=== PATIENT | male | born 1965 | race Caucasian/White ===

== ENCOUNTER 2024-10-18 05:15 | Observation (INO) | payer OTHER, SELFPAY ==
[2024-10-17 23:09] VITALS: BP 158/84; BMI 27.8
[2024-10-17 23:12] VITALS: BP 158/84
[2024-10-18] VITALS (10 sets, daily range): BP systolic 113–141; BP diastolic 57–85; BMI 28.1
[2024-10-18] MEDS: DECADRON 10 MG IV (00:06)
[2024-10-18] MEDS: TORADOL 15 MG IV ×3 (00:07→17:24)
[2024-10-18] MEDS: VALIUM INJECTION 5 MG IV (00:08)
[2024-10-18] MEDS: DILAUDID 0.5 MG IV ×4 (01:55→20:41)
[2024-10-18] MEDS: LIDOCAINE 4% PATCH 1 PATCH TOPICAL (02:36)
[2024-10-18] MEDS: TYLENOL 1000 MG PO ×4 (02:36→23:00)
--- NOTE | 2024-10-18 02:48 | ED.GENMED ---
History of Present Illness
<Ron Garcia PA-C - Last Filed: 10/18/24 03:23>
General
Chief Complaint: Back Pain
Source: patient
Exam Limitations: none
Time Seen by Provider: 10/17/24 23:50
History of Present Illness
History of Present Illness:
59-year-old male presents via EMS with severe lower back pain worsening over the past 2 to 3 days. He was unable to get off of his recliner today. EMS had to come get him. He denies bowel or bladder dysfunction. He denies leg pain. No perianal
anesthesia. He has a history remotely of requiring L4-L5 laminectomy. No fevers. No abdominal pain chest pain or shortness of breath. No paresthesias to the leg. Tried [id number] medications at home without relief. He tried muscle
relaxer and Vicodin at home without relief.
Past History
<Ron Garcia PA-C - Last Filed: 10/18/24 03:23>
Past History
ED Past Medical History: Asthma
ED Past Surgical History: None
Social History
Tobacco: Non-smoker
Alcohol: None
Personal:
Living: with family
Employment: Employed
Family History
Family History: Other (Mother with history of aortic stenosis.); Negative CAD
Phy Exam
<Ron Garcia PA-C - Last Filed: 10/18/24 03:23>
Physical Exam
Physical Exam:
General: Comfortable appearing male no acute respiratory distress
HEENT: Normocephalic atraumatic
Heart: Regular rate and rhythm
Lungs: Clear no wheeze
Abdomen: Soft nontender nondistended
Vascular: 2+ dorsalis pedis pulse bilateral feet
Neurologic: Good sensation bilateral lower extremities bilateral patellar reflexes 2+ bilateral Achilles reflexes 2+. Good strength to the lower extremities
Skin is warm no rash
Musculoskeletal exam: No reproducible tenderness to the lumbar spine. Good passive range of motion to the leg
Course
<Ron Garcia PA-C - Last Filed: 10/18/24 03:23>
Orders/Labs/Results
Orders:
Orders
10/18/24 00:01
Dexamethasone Sod Phosphate [Decadron] 10 mg IV NOW STA
Ketorolac [Toradol] 15 mg IV NOW STA
diazePAM [Valium Injection] 5 mg IV NOW STA
CR Lumbar Spine 2 Or 3 Views Urgent
Comment:
Reason For Exam: back pain
10/18/24 01:45
HYDROmorphone [Dilaudid] 0.5 mg IV NOW STA
10/18/24 02:29
Basic Metabolic Panel Urgent
Complete Blood Count/With Diff Urgent
Urinalysis Reflex To Culture Urgent
Acetaminophen [Tylenol] 1,000 mg PO NOW STA
Lidocaine [Lidocaine 4% Patch] 1 patch TOPICAL ONCE ONE
Apply Lidocaine patch(s) to:: low back
Vital Signs
Initial and Last Documented VS:
Initial Vital Signs
Temp Pulse Resp BP Pulse Ox
36.7 C 69 20 158/84 98
10/17/24 23:09 10/17/24 23:09 10/17/24 23:09 10/17/24 23:09 10/17/24 23:09
Last Documented Vital Signs
Temp Pulse Resp BP Pulse Ox
36.7 C 60 14 113/79 94
10/17/24 23:09 10/18/24 00:00 10/18/24 00:00 10/18/24 02:00 10/18/24 02:00
<Scotty Brooke MD - Last Filed: 10/18/24 03:28>
Orders/Labs/Results
Orders:
Orders
10/18/24 00:01
Dexamethasone Sod Phosphate [Decadron] 10 mg IV NOW STA
Ketorolac [Toradol] 15 mg IV NOW STA
diazePAM [Valium Injection] 5 mg IV NOW STA
CR Lumbar Spine 2 Or 3 Views Urgent
Comment:
Reason For Exam: back pain
10/18/24 01:45
HYDROmorphone [Dilaudid] 0.5 mg IV NOW STA
10/18/24 02:29
Basic Metabolic Panel Urgent
Complete Blood Count/With Diff Urgent
Urinalysis Reflex To Culture Urgent
Acetaminophen [Tylenol] 1,000 mg PO NOW STA
Lidocaine [Lidocaine 4% Patch] 1 patch TOPICAL ONCE ONE
Apply Lidocaine patch(s) to:: low back
Vital Signs
Initial and Last Documented VS:
Initial Vital Signs
Temp Pulse Resp BP Pulse Ox
36.7 C 69 20 158/84 98
10/17/24 23:09 10/17/24 23:09 10/17/24 23:09 10/17/24 23:09 10/17/24 23:09
Last Documented Vital Signs
Temp Pulse Resp BP Pulse Ox
36.7 C 60 14 113/79 94
10/17/24 23:09 10/18/24 00:00 10/18/24 00:00 10/18/24 02:00 10/18/24 02:00
Procedures
<Scotty Brooke MD - Last Filed: 10/18/24 03:28>
Other
Indication for procedure:: low back pain
Procedure completed by: Scotty Brooke MD
Additional Procedure:
Trigger point injection
Area was cleaned using usual sterile procedure
Injected 5 cc of lidocaine 1%/bupivacaine 0.5%
Band-Aid applied.
Patient tolerated procedure well
<Ron Garcia PA-C - Last Filed: 10/18/24 03:23>
MDM/Problems Addressed
Differential Diagnosis Includes:
Patient with severe low back pain. Most likely musculoskeletal. No signs of cauda equina. No fever to suggest infectious source. Pain is certainly made worse with motion and positional. Do not suspect kidney stone. Patient treated with
multiple medications here including Toradol, Decadron, Valium
And eventually Dilaudid. Patient felt somewhat more comfortable at rest however multiple attempts were made for the patient to even sit up in bed or dangle his feet off the bed and he was able to get his back stretcher. Discussed with emergency
room attending. This point with the inability to walk feeling multiple medications will keep in hospital for intractable back pain
<Ron Garcia PA-C - Last Filed: 10/18/24 03:23>
*Critical Care Note
Total Time (30-74mins, 75-104mins- exclusive of procedures): Not Applicable
<Ron Garcia PA-C - Last Filed: 10/18/24 03:23>
Update Note
Update Note:
Patient given trigger point injection by emergency room attending. Patient notes minimal relief with this as well. Still unable to sit up or dangle his feet off the bed
ED Attending Note
<Ron Garcia PA-C - Last Filed: 10/18/24 03:23>
-
Portions of this chart may have been created with voice recognition software.� Occasional wrong word or��sound alike� substitutions may have occurred due to the inherent limitations of voice recognition software.
<Scotty Brooke MD - Last Filed: 10/18/24 03:28>
ED Attending Note
Patient seen and examined by attending physician: Yes
ED Attending Note:
I have seen and evaluated the patient with a [id number] encounter. I have spoken to the advance practicer provider and involved in the medical history, the physical exam, medical decision making.
Evaluation and management service: agree unless noted differently below.
Results interpretation: agree unless noted differently below.
Focused HPI: 59-year-old male with history as noted presents for evaluation of low back pain. Patient reports symptoms started the day after he lifted some 40 pound bags of salt at the store. He says the next day his back was sore and he has had
progressive pain since. He says that today he could barely move due to low back pain. Pain mostly on the right side but radiates across the low back. No radicular symptoms down the legs. No weakness or numbness in the legs. No saddle
anesthesia. No bowel or bladder incontinence. He denies any other urinary symptoms. Denies any abdominal pain. Denies any other complaints. He has been taking Motrin, stretching, heat packs/hot shower without improvement.
Physical exam: Awake alert appears uncomfortable. Laying still in bed. Hypertensive otherwise normal vitals. There is no midline tenderness of the thoracic or lumbar spine. He has point tenderness right paraspinal region approximately level of
L3. Motor and sensory intact in the legs.
Medical Decision Makin-year-old male presents for evaluation of low back pain right greater than left for the past few days after lifting heavy salt bags. He has no red flags to suggest cauda equina and in my judgment no indication for
emergent MRI. We did check x-ray of the lumbar spine reviewed by me shows no acute fracture. Suspect muscular back pain/myofascial strain with spasm. He was given steroid, Lidoderm, Tylenol, Toradol, Valium, Dilaudid he had some improvement but
still significant pain cannot move around in the bed. I did trial a trigger point injection as he had point tenderness in the right lumbar region but again inadequate pain control. Will admit for symptom control. Discussed with hospitalist.
Discharge Plan
Departure
Prescriptions:
No Action
montelukast 10 MG tablet
10 mg PO HS
albuterol sulfate 1 PUFF HFA aerosol inhaler
1 puff inhalation R Q4HPRN PRN (Reason: asthma)
fluticasone propionate 1 SPRAY spray,suspension
2 spray intranasal DAILY
fluticasone furoate-vilanterol [Breo Ellipta] 1 EACH blister with device
1 puff inhalation DAILY
acetaminophen 325 MG tablet
650 mg PO Q4HPRN PRN (Reason: mild pain) Qty: 1 0RF
ibuprofen 200 MG tablet
400 - 600 mg PO Q6HPRN PRN (Reason: moderate pain) Qty: 1 0RF
Referrals:
Radha Shahid DO [Family Provider] -
Interventions
Interventions:
*Risk Screen - Suicide Last Done: 10/17/24 23:09
*General Assessment Last Done: 10/17/24 23:09
*Neglect/Abuse Screening Last Done: 10/17/24 23:09
*ED- Fall Risk Assessment Last Done: 10/17/24 23:09
*ED COVID-19 Vaccine History Last Done: 10/17/24 23:09
ED-Musculoskeletal Assessment Last Done: 10/17/24 23:22
Discharge Date and Time
Print Language: CROATIAN
[2024-10-18 03:29] LABS: % Basophils 0.5 % (0-2); % Eosinophils 0.8 % (0-6); % Immature Granulocytes 0.3 % (0-0.5); % Lymphocytes 8.5 % (20.5-51.1); % Monocytes 3.6 % (1.7-9.3); % Neutrophils 86.3 % (42.2-75.2); Absolute Basophils 0.1 10^3/uL (0-0.2); Absolute Eosinophils 0.1 10^3/uL (0-0.7); Absolute Lymphocytes 0.8 10^3/uL (1.2-3.4); Absolute Monocytes 0.3 10^3/uL (0.1-0.6); Hematocrit 42.9 % (39.0-52.0); Hemoglobin 14.5 g/dL (13.0-18.0); Mean Corp Hgb Conc. 33.8 g/dL (33.0-37.0); Mean Corpuscular Hgb 28.4 pg (27.0-31.0); Mean Platelet Volume 10.8 fL (7.4-10.4); Nucleated Red Blood Cells % 0 % (-); Platelet Count 228 10^3/uL (130-400); Red Blood Cell Count 5.11 10^6/uL (4.70-6.10); Red Cell Dist. Width 14.1 % (11.5-14.5); White Blood Cell Count 9.3 10^3/uL (4.8-10.8)
[2024-10-18 03:48] LABS: Blood Urea Nitrogen 19 mg/dl (9-20); Carbon Dioxide 24 mmol/L (22-30); Chloride 108 mmol/L (98-107); Estimated Creatinine Clearance > 125 ml/min; Glucose 124 mg/dl (70-99); Potassium 4.6 mmol/L (3.5-5.1); Sodium 138 mmol/L (135-145); eGFR > 60.00
[2024-10-18 04:56] LABS: Urine Albumin Negative (Neg - Trace); Urine Bilirubin Negative (Negative); Urine Character Clear (Clear); Urine Color Yellow; Urine Glucose Negative (Negative); Urine Ketone Negative (Negative); Urine Leukocyte Negative (Negative); Urine Nitrite Negative (Negative); Urine Occult Blood 1+ (Negative); Urine Specific Gravity 1.015 (<1.030); Urine Urobilinogen Negative (Neg - 1+)
--- NOTE | 2024-10-18 05:05 | HPS.HSE ---
Family Physician
-
Family Physician: Radha Shahid DO
Chief Complaint
-
Back Pain
History of Present Illness
Patient is a 59y M with PMH significant for asthma and DDD who presents to ED complaining of back pain. Patient states that he developed low back a few days ago after carrying some heavy objects. He has performed similar activities in the past
without aggravating his back. Patient has been taking OTC meds, muscle relaxants, etc at home without significant improvement in his symptoms. This evening, he was unable to move / get up without severe pain and called EMS.
Patient denies any LE numbness, tingling or weakness. No incontinence of bowel or bladder.
No other concerning symptoms / findings.
Medical History
Past Medical History
Past Medical History: Reports Other
Additional Past Medical History:
Asthma
Lumbar DDD
Past Surgical History: Reports Other
Additional Past Surgical History:
L4-5 Laminectomy
Cholecystectomy
Social History
Tobacco: Non-smoker
Alcohol: None
Drug: None
Family History
Family History: Not pertinent
Allergies / Home Medications
Allergies reflects when Allergies were last updated in [facility].
Home Medications with original date entered in [facility]
Allergy/Medication List:
Allergies
Allergy/AdvReac Type Severity Reaction Status Date / Time
khadijah Allergy Swelling Uncoded 10/17/24 23:08
Home Medications
albuterol sulfate 90 mcg/actuation aerosol inhaler 1 puff inhalation R Q4HPRN PRN asthma 10/04/21
fluticasone furoate 200 mcg-vilanterol 25 mcg/dose inhalation powder (Breo Ellipta) 1 puff inhalation DAILY 10/04/21
fluticasone propionate 50 mcg/actuation nasal spray,suspension 2 spray intranasal DAILY 10/04/21
montelukast 10 mg tablet 10 mg PO HS 10/04/21
acetaminophen 325 mg tablet 650 mg (2 x 325 mg) PO Q4HPRN PRN mild pain #1 tab 10/07/21
ibuprofen 200 mg tablet 400 - 600 mg (2 - 3 x 200 mg) PO Q6HPRN PRN moderate pain #1 tab 10/07/21
Review of Systems
-
History Source: Patient
A 12 point ROS was completed and negative except as noted: Yes
Constitutional: Denies Fever or Chills
Respiratory: Denies Cough or Trouble Breathing
Cardiac: Denies Chest Pain or Palpitations
Abdomen/GI: Denies Abdominal Pain, Nausea, Vomiting or Diarrhea
: Denies Dysuria or Frequency
Musculoskeletal: Reports Other (Back Pain); Denies Joint Pain or Edema
Neurological: Denies Dizzy or Headache
Psych: Denies Depression or Anxiety
Physical Exam
Vital Signs
Vital Signs
Temp Pulse Resp BP Pulse Ox
98.1 F 60 18 126/69 93
10/17/24 23:09 10/18/24 03:00 10/18/24 03:00 10/18/24 04:00 10/18/24 04:00
Physical Exam
General: Other (59y M in mild distress due to pain.)
HEENT: Moist mucous membranes and PERRLA
Respiratory: Clear; No Wheezes, Rales or Rhonchi
Cardiac: S1/S2 and Regular Rhythm; No Murmur
GI: Soft, Non Tender, Non Distended and Normal Bowel Sounds
Musculoskeletal: No Clubbing, No Cyanosis, No Edema and Other (Patient able to perform SLR bilaterally to at least 45 degrees without severe back pain. Strength, sensation, reflexes intact in LE. Pos low back tenderness / spasm.)
Neuro: AO x 3 and Nonfocal/grossly intact
Laboratory Results
-
10/18/24 03:18
10/18/24 03:18
Impression/Plan
-
A/P: Patient is a 59y M with PMH significant for lumbar DDD who presents to ED complaining of back pain x several days.
Intractable Low Back Pain
Lumbar DDD
- Observe overnight for symptom control.
- No warning signs / symptoms to suggest cord compression, cauda equina, nerve impingment.
- Continue pain control, muscle relaxants, heat application, etc.
- PT evaluation.
- Follow for clinical improvement / increased mobility.
Mild Intermittent Asthma
- Stable. Continue usual medications.
DVT Prophylaxis: Lovenox
Code Status: Full
[2024-10-18 05:10] LABS: Urine Red Blood Cell 0-2 /HPF (0-2); Urine Squamous Cell None seen /LPF (Few); Urine White Cell 0-2 /HPF (0-5)
[2024-10-18] MEDS: SYMBICORT 160/4.5 MCG INHALER INH (07:30)
[2024-10-18] MEDS: VALIUM 5 MG PO ×2 (11:16→19:44)
--- NOTE | 2024-10-18 13:42 | CM ---
Initial assessment completed with pt at bedside.
Pt is a 59yr old male admitted on OBS for intractable back pain
Pt signed OBS
At baseline, pt is indep and lives with his in a 2 level home with 2 steps to enter.
Pt drives and has no current/hx of equip/SNF/VN.
PCP; Radha Shahid
Pharm; [facility]
PLAN; dc to home with no anticipated needs.
--- NOTE | 2024-10-18 16:35 | PTCARENOTE ---
Patient unable to stand due to pain. Patient can reposition himself in bed with slow, cautious movements. Kpad placed under low back.
[2024-10-18] MEDS: LOVENOX 40 MG SC (17:21)
[2024-10-18] MEDS: SYMBICORT 160/4.5 MCG INHALER 2 PUFF INH (19:21)
[2024-10-18] MEDS: SINGULAIR 10 MG PO (23:00)
[2024-10-19] MEDS: DILAUDID 0.5 MG IV ×2 (03:03→07:59)
[2024-10-19] MEDS: VALIUM 5 MG PO ×3 (04:25→20:51)
[2024-10-19] MEDS: TORADOL 15 MG IV (05:40)
[2024-10-19 06:00] VITALS: BMI 28.4
[2024-10-19 07:01] VITALS: BP 115/72
[2024-10-19] MEDS: SYMBICORT 160/4.5 MCG INHALER 2 PUFF INH ×2 (07:46→19:47)
[2024-10-19] MEDS: TYLENOL 1000 MG PO ×3 (07:58→22:36)
--- NOTE | 2024-10-19 09:24 | W.PN.HOSP.TC ---
Today's Communication/Plan
-
see note
Assessment / Plan
Assessment / Plan
Intractable Low Back Pain
Lumbar DDD
-Patient continues with significant pain and unable to participate with physical therapy yesterday due to spasms
-Change pain medication regimen with oxycodone 5/10 mg ordered for moderate severe pain with Dilaudid remains for breakthrough use
-Gabapentin 200 mg twice daily added
-Start on Tylenol 1 g every 8 hours scheduled with ketorolac as needed
-Will add steroids if patient does not have any improvement
-Maintain on daily MiraLAX and hold if diarrhea for the day, dulcolax for as needed's if no bowel movement for the day
-Reevaluation with physical therapy today
Mild Intermittent Asthma
- Stable. Continue usual medications.
DVT Prophylaxis: Lovenox
Code Status: Full
Anticipated Discharge: Within 24 hours
Subjective/Interval History
-
Date of Service: October 19, 2024
Continues to have some pain and spasms
Not constipated
No other issues reported
Objective Data
-
Vital Signs:
Vital Signs
Temp Pulse Resp BP Pulse Ox
98.1 F 83 14 115/72 96
10/19/24 07:01 10/19/24 07:51 10/19/24 07:51 10/19/24 07:01 10/19/24 07:51
I&O
10/18/24 10/19/24 10/20/24
05:59 06:59 06:59
Intake Total
Output Total
Balance
Review of Systems
-
Respiratory: Reports No Symptoms
Cardiac: Reports No Symptoms
Abdomen/GI: Reports No Symptoms
Physical Exam
-
General: No Apparent Distress and Comfortable
HEENT: Negative Oxygen
Respiratory: Clear to Auscultation
Cardiac: Regular Rhythm and S1/S2; Negative Murmur or Rub
GI: Soft, Nontender and Nondistended
Musculoskeletal: No Edema
Neuro: Awake, Alert, Oriented, No Motor Deficits and Nonfocal/Grossly Intact
Psych: Calm
[2024-10-19] MEDS: NEURONTIN 200 MG PO ×2 (11:16→20:49)
[2024-10-19] MEDS: MIRALAX 17 GRAMS PO (11:17)
[2024-10-19 12:35] VITALS: BP 149/80; PULSE 63
[2024-10-19 12:37] VITALS: BP 149/86; PULSE 63
[2024-10-19] MEDS: SKELAXIN 800 MG PO (14:49)
[2024-10-19] MEDS: ROXICODONE 5 MG PO (14:50)
[2024-10-19 15:45] VITALS: BP 133/79
[2024-10-19] MEDS: LOVENOX 40 MG SC (16:48)
[2024-10-19] MEDS: ROXICODONE 10 MG PO ×2 (18:10→22:36)
[2024-10-19] MEDS: SINGULAIR 10 MG PO (22:36)
[2024-10-19 23:13] VITALS: BP 97/50
[2024-10-20 05:15] VITALS: BP 135/76
[2024-10-20] MEDS: ROXICODONE 10 MG PO ×3 (05:15→14:21)
[2024-10-20] MEDS: SKELAXIN 800 MG PO (06:56)
[2024-10-20] MEDS: SYMBICORT 160/4.5 MCG INHALER 2 PUFF INH (07:38)
[2024-10-20 07:50] VITALS: BP 105/67
[2024-10-20] MEDS: MIRALAX 17 GRAMS PO (08:14)
[2024-10-20] MEDS: TYLENOL 1000 MG PO (08:15)
[2024-10-20] MEDS: NEURONTIN 200 MG PO (08:15)
--- NOTE | 2024-10-20 09:59 | W.DCSUMMARY ---
Discharge Summary
Discharge Data
Date of Admission: 10/18/24
Date of Discharge: 10/20/24
-
Pending Results: No
Hospital Course
59y M with PMH significant for asthma and DDD
Presented with intractable back pain that was triggered by lifting heavy items. Imaging studies were obtained in the ED with lumbar spine x-ray. Mild degenerative disc disease of L3-L4 and L4-L5 with minimal lower lumbar facet arthropathy. Pain
improved with pain medications. Evaluated by physical therapy recommended outpatient PT. Will need to follow-up with outpatient spine surgery/orthopedic surgery for continued follow-up and even potentially pain management.
Will be discharged home with analgesics. Oxycodone 5 mg p.o. every 4 as needed x 3 days. Also started on Skelaxin. When both Skelaxin and Oxycodone are taken together this could be highly sedating. Even when these agents are taken on there own
they can he be highly sedating. Avoid heavy machinery use avoid use of heavy machinery. This medication can be highly addictive therefore use with caution. If requires continued refills please follow-up with PCP. Otherwise please follow up with PCP
Lumbar spine Xray
IMPRESSION:
Mild degenerative disc disease of L3-L4 and L4-L5 with minimal lower lumbar facet arthropathy.
Seen and examined. No new complaints. No acute overnight events.
States lumbar pain has improved significantly. Did wake up with some pain but better than prior. States that he would need some pain meds on discharge. Has not seen his spine surgeon in a very long time. Understands that he should not lift
anything heavy any more due to his back pain.
Denies numbness tingling loss of sensations bowel urinary incontinence saddle anesthesia/inner thigh numbness
NAD
Scleral Anicteric
MMM
No JVD
CTABL
RRR, S1/S2
Soft, NT, ND, BS+
Warm, Dry
AAOx3, full range of motion, 5/5 motor strength in bilateral upper and lower extremities, full dorsiflexion/plantarflexion bilaterally, equal strength in bilateral upper extremities
Calm
More than 30 minutes spent in discharge including
Final examination of the patient
Summarizing hospital stay
Instructions for continuing care to all relevant caregivers
Preparation of discharge records, prescriptions, and referral forms
Total time spent (in minutes): 35mins
Discharge Plan
-
Patient Disposition: Home (Routine Discharge)
Discharge Diagnosis/Procedures: Intractable back pain
Condition: Good
Diet: Regular
Activity: As tolerated
Additional Activity: Avoid lifting heavy objects
Driving Restrictions: As prior to admission
Bathing Restrictions: None
Activity Restrictions/Additional Instructions:
Presented with intractable back pain that was triggered by lifting heavy items. Imaging studies were obtained in the ED with lumbar spine x-ray. Mild degenerative disc disease of L3-L4 and L4-L5 with minimal lower lumbar facet arthropathy. Pain
improved with pain medications. Evaluated by physical therapy recommended outpatient PT. Will need to follow-up with outpatient spine surgery/orthopedic surgery for continued follow-up and even potentially pain management.
Will be discharged home with analgesics. Oxycodone 5 mg p.o. every 4 as needed x 3 days. Also started on Skelaxin. When both Skelaxin and Oxycodone are taken together this could be highly sedating. Even when these agents are taken on there own
they can he be highly sedating. Avoid heavy machinery use avoid use of heavy machinery. This medication can be highly addictive therefore use with caution. If requires continued refills please follow-up with PCP. Otherwise please follow up with PCP
Lumbar spine Xray
IMPRESSION:
Mild degenerative disc disease of L3-L4 and L4-L5 with minimal lower lumbar facet arthropathy.
Referrals:
Radha Shahid DO [Family Provider] -
Prescriptions:
New
bisacodyl 5 mg Tablet,Delayed Release (Dr/Ec)
10 mg PO DAILYPRN PRN (Reason: Constipation) 5 Days Qty: 5 0RF
polyethylene glycol 3350 17 gram Powder In Packet
17 g PO DAILY 5 Days Qty: 5 0RF
oxycodone 5 mg Tablet
5 mg PO Q4HPRN PRN (Reason: mod pain) 3 Days Qty: 12 0RF
metaxalone 800 mg Tablet
800 mg PO Q8HPRN PRN (Reason: Spasms) 3 Days Qty: 9 0RF
Continued
montelukast 10 MG tablet
10 mg PO HS
albuterol sulfate 1 PUFF HFA aerosol inhaler
1 puff inhalation R Q4HPRN PRN (Reason: asthma)
fluticasone propionate 1 SPRAY spray,suspension
2 spray intranasal DAILY
fluticasone furoate-vilanterol [Breo Ellipta] 1 EACH blister with device
1 puff inhalation DAILY
acetaminophen 325 MG tablet
650 mg PO Q4HPRN PRN (Reason: mild pain) Qty: 1 0RF
ibuprofen 200 MG tablet
400 - 600 mg PO Q6HPRN PRN (Reason: moderate pain) Qty: 1 0RF
Discharge Orders:
Discharge Patient (As Directed); Ordered 10/20/24
Ordered By: Roberto Dennis
Discharge Date and Time
Print Language: SOUTH SUDANESE
--- NOTE | 2024-10-20 11:27 | VNURNOTE ---
Home Health Liaison met with patient at bedside to discuss [facility] nurse/therapy, visits, schedule and homebound status. Patient is agreeable and understands that visits at home will be 2-3 x per week to assess and teach medical management. Patient is
aware that [facility] will contact them for start of care in 1-2 days after discharge from .
[facility] referral completed in [facility].
[2024-10-20 13:00] VITALS: BP 110/62
--- NOTE | 2024-10-20 13:05 | CM ---
Patient seen bedside.
Patient for d/c home, would like VN.
Patient chose [facility].
Spouse will transport.
Plan: Home with [facility]
--- NOTE | 2024-10-20 14:30 | PTCARENOTE ---
Addendum entered by Sandra Anders RN 10/20/24 16:18:
Patient left via wheelchair with staff escort. Patient's at bedside to transport patient home.
Original Note:
Reviewed discharge instructions with patient. Patient verbalizes understanding of teaching. Denies questions at this time. Reviewed usage of laxatives and need to ensure that bowels are moving due to side effects of narcotic. Patient verbalizes
understanding. IV removed. Patient awaiting to arrive for transport home.
[2024-10-20] MEDS: TYLENOL PO (16:05)
== END 2024-10-20 16:05 | disposition home health service (06) ==
LOC: 4 EAST ACU 05:15
PROVIDERS: ADMITTING PHYSICIAN Hospitalist; ATTENDING PHYSICIAN Hospitalist; EMERGENCY PHYSICIAN Emergency Medicine; FAMILY PHYSICIAN Family Medicine
DX: M51.360 Other intervertebral disc degeneration, lumbar region with discogenic back pain only (principal); M47.816 Spondylosis without myelopathy or radiculopathy, lumbar region; J45.20 Mild intermittent asthma, uncomplicated; I10 Essential (primary) hypertension; Z79.51 Long term (current) use of inhaled steroids; Z79.899 Other long term (current) drug therapy; Z90.49 Acquired absence of other specified parts of digestive tract; Z91.018 Allergy to other foods
CPT/HCPCS: 20552; 72100; 80048; 81003; 81015; 85025; 94640; 96374; 96375; 97163; 97166; 99285; G0378